=== PATIENT | male | born 1930 | race Caucasian/White ===

== ENCOUNTER 2021-04-19 16:52 | Inpatient (IN) | payer MEDICARE ==
[2021-04-20] MEDS ORDERED: Dextrose 50% Abboject 50 ML SYRINGE SLOW IVP PRN (11:05)
[2021-04-20] MEDS ORDERED: Ondansetron PF 4 MG/2 ML Vial IVP PRN (11:05)
[2021-04-20] MEDS ORDERED: HumaLOG 300 UNITS/3 ML VIAL SC PRN ×2 (11:05)
[2021-04-20] MEDS ORDERED: Dextrose 5% in Water 1,000 ML IV PRN (11:05)
[2021-04-20] MEDS ORDERED: Ondansetron ODT 4 MG TAB PO PRN (11:05)
[2021-04-20] MEDS ORDERED: hydrALAZINE 20 MG/ML VIAL SLOW IVP PRN (11:05)
[2021-04-20] MEDS: metFORMIN 500 MG TAB PO SCH (18:40)
[2021-04-20] MEDS: Lisinopril 5 MG TAB PO SCH (21:25)
[2021-04-20] MEDS: Atorvastatin Calcium 20 MG TAB PO SCH (21:25)
[2021-04-21 05:34] LABS: #Basophils 0.1 thou/uL (0.0-0.2); #Eosinphils 0.3 thou/uL (0.0-0.7); #Lymphocytes 1.7 thou/uL (1.20-3.40); #Neutrophils 5.8 thou/uL (1.40-6.50); %Basophils 0.7 % (0.0-1.0); %Eosinophils 3.4 % (0.0-10.0); %Lymphocytes 18.8 % (21.0-51.0); %Monocytes 11.7 % (0.0-10.0); %Neutrophils 65.3 % (42.0-75.0); Hemoglobin 15.6 g/dL (14.0-18.0); Mean Corpuscular HGB CONC 34.1 g/dL (32.0-36.0); Mean Corpuscular Hemoglobin 30.9 pg (27.0-31.0); Mean Corpuscular Volume 90.6 fL (78.0-98.0); Platelet Count 254 thou/uL (130-400); RBC Distribution Width 12.4 % (11.5-14.5); Red Blood Cell (RBC) Count 5.04 mill/uL (4.70-6.10); White Blood Cell (WBC) Count 8.8 thou/uL (4.8-10.8)
[2021-04-21 06:17] LABS: Anion Gap 14 mmol/L (10-20); BUN (Urea Nitrogen) 11 mg/dL (8.4-25.7); Calc. Creatinine Clearance 66 mL/min (70-130); Calcium 9.6 mg/dL (7.8-10.44); Carbon Dioxide 23 mmol/L (23-31); Chloride 104 mmol/L (98-107); Glucose 119 mg/dL (83-110); Sodium 137 mmol/L (136-145)
[2021-04-21] MEDS ORDERED: Lidocaine 0.5%/Epinephrine 1:200,000 50 ml Vial ONE (07:18)
[2021-04-21] MEDS ORDERED: Bacitracin Zinc Ointment 30 gm TUBE ONE (07:19)
[2021-04-21] MEDS ORDERED: Thrombin 5000 UNITS/5 ML VIAL ONE (07:19)
[2021-04-21] MEDS ORDERED: HYDROmorphone 0.5 MG/0.5 ML SYRINGE ONE (07:38)
[2021-04-21] MEDS ORDERED: Fentanyl 100 MCG/2 ML VIAL ONE ×2 (07:38→07:55)
[2021-04-21] MEDS ORDERED: Albumin 5% 0 ML ONE (07:39)
[2021-04-21] MEDS ORDERED: Phenylephrine 10 MG/ML VIAL ONE ×2 (07:53→08:11)
[2021-04-21] MEDS ORDERED: ceFAZolin 2 GM/DEX 5% 100 ML BAG ONE ×2 (07:56→07:57)
[2021-04-21] MEDS: Finasteride 5 MG TAB PO SCH (08:01)
[2021-04-21] MEDS: Famotidine 20 MG TAB PO SCH (08:01)
[2021-04-21] MEDS: metFORMIN 500 MG TAB PO SCH ×2 (08:01→18:16)
[2021-04-21] MEDS ORDERED: Glycopyrrolate 0.2 MG/ML 5 ML SYRINGE ONE (08:11)
[2021-04-21] MEDS ORDERED: Rocuronium Bromide 10 MG/ML (10ML VIAL) ONE (08:11)
[2021-04-21] MEDS ORDERED: Lidocaine 1% PF 5 ML VIAL ONE (08:11)
[2021-04-21] MEDS ORDERED: PROPOFOL 200 MG/20 ML VIAL ONE (08:11)
[2021-04-21] MEDS ORDERED: Aspirin 81 mg Enteric Coated Tablet PO SCH (09:00)
[2021-04-21] MEDS ORDERED: Promethazine HCl 25 MG/ML VIAL IVPB PRN (10:10)
[2021-04-21] MEDS ORDERED: Ondansetron HCl/PF 4 MG/2 ML Vial IVP PRN (10:10)
[2021-04-21] MEDS ORDERED: PACU-Morphine 4MG/ML VIAL SLOW IVP PRN (10:10)
[2021-04-21] MEDS ORDERED: Promethazine HCl 25 MG/ML VIAL IM PRN (10:10)
[2021-04-21] MEDS ORDERED: Sodium Chloride 0.9% 10 ML ONE (10:40)
[2021-04-21] MEDS ORDERED: Morphine 2 MG/ML VIAL SLOW IVP PRN (11:47)
[2021-04-21] MEDS ORDERED: Trospium 20 MG TAB PO SCH (13:00)
[2021-04-21] MEDS ORDERED: Budesonide 0.5 MG/2 ML NEB ONE (16:51)
[2021-04-21] MEDS: CEFAZOLIN 2 GM in Premix Bag 1 BAG IVPB SCH ×2 (17:24→21:54)
[2021-04-21] MEDS: Lisinopril 5 MG TAB PO SCH (20:46)
[2021-04-21] MEDS: Atorvastatin Calcium 20 MG TAB PO SCH (20:46)
[2021-04-21] MEDS: Sodium Chloride 0.9% 1,000 ML IV SCH (21:00)
[2021-04-21 22:38] LABS: Bilirubin Negative (Negative); Blood, Urine 3+ (Negative); Clarity Clear (Clear); Glucose, Urine (Dipstick) Normal (Negative); Ketone, Urine 20 mg/dL (Negative); Leukocyte 500 Leu/uL (Negative); Nitrite Negative (Negative); Protein, Urine (Dipstick) 30 mg/dL (Neg-Trace); Specific Gravity, Urine 1.024 (1.002-1.036); Squamous Epithelial None Seen HPF (0-3); Urobilinogen Normal mg/dL (Less than 2)
[2021-04-21 22:48] LABS: Bacteria/HPF None Seen HPF (None Seen)
[2021-04-21 22:49] LABS: Urine Culture Reflex Yes Yes
[2021-04-21] MEDS: Morphine 4 MG/ML VIAL SLOW IVP PRN (23:15)
[2021-04-22] MEDS: CEFAZOLIN 2 GM in Premix Bag 1 BAG IVPB SCH ×3 (05:37→21:43)
[2021-04-22] MEDS: Sodium Chloride 0.9% 1,000 ML IV SCH (09:45)
[2021-04-22] MEDS: Finasteride 5 MG TAB PO SCH (09:46)
[2021-04-22] MEDS: Famotidine 20 MG TAB PO SCH (09:46)
[2021-04-22] MEDS: metFORMIN 500 MG TAB PO SCH ×3 (09:48→16:59)
[2021-04-22 11:13] LABS: #Lymphocytes 1.1 thou/uL (1.20-3.40); #Monocytes 1.9 thou/uL (0.11-0.59); #Neutrophils 15.4 thou/uL (1.40-6.50); %Basophils 0.1 % (0.0-1.0); %Eosinophils 0.2 % (0.0-10.0); %Lymphocytes 6.1 % (21.0-51.0); %Monocytes 10.2 % (0.0-10.0); %Neutrophils 83.4 % (42.0-75.0); Hemoglobin 15.2 g/dL (14.0-18.0); Mean Corpuscular HGB CONC 35.1 g/dL (32.0-36.0); Mean Corpuscular Hemoglobin 32.1 pg (27.0-31.0); Mean Corpuscular Volume 91.4 fL (78.0-98.0); Mean Platelet Volume 6.6 fL (7.4-10.4); Platelet Count 253 thou/uL (130-400); RBC Distribution Width 12.5 % (11.5-14.5); Red Blood Cell (RBC) Count 4.74 mill/uL (4.70-6.10); White Blood Cell (WBC) Count 18.4 thou/uL (4.8-10.8)
[2021-04-22 11:32] LABS: Anion Gap 13 mmol/L (10-20); BUN (Urea Nitrogen) 11 mg/dL (8.4-25.7); Calc. Creatinine Clearance 53 mL/min (70-130); Calcium 9.2 mg/dL (7.8-10.44); Carbon Dioxide 25 mmol/L (23-31); Chloride 101 mmol/L (98-107); Glucose 180 mg/dL (83-110); Sodium 135 mmol/L (136-145)
[2021-04-22] MEDS: Acetaminophen 500 MG TAB PO PRN (17:30)
[2021-04-22] MEDS: Lisinopril 5 MG TAB PO SCH (21:41)
[2021-04-22] MEDS: Atorvastatin Calcium 20 MG TAB PO SCH (21:42)
[2021-04-22] MEDS: Morphine 4 MG/ML VIAL SLOW IVP PRN (22:14)
[2021-04-22] MEDS: Acetaminophen/Codeine 30-300mg Tablet PO PRN (22:18)
[2021-04-23 05:22] LABS: Hemoglobin 14.3 g/dL (14.0-18.0); Mean Corpuscular Hemoglobin 29.2 pg (27.0-31.0); Mean Corpuscular Volume 91.1 fL (78.0-98.0); Mean Platelet Volume 6.9 fL (7.4-10.4); Platelet Count 249 thou/uL (130-400); RBC Distribution Width 12.5 % (11.5-14.5); White Blood Cell (WBC) Count 14.7 thou/uL (4.8-10.8)
[2021-04-23] MEDS: Morphine 4 MG/ML VIAL SLOW IVP PRN ×2 (05:54→20:23)
[2021-04-23] MEDS: CEFAZOLIN 2 GM in Premix Bag 1 BAG IVPB SCH ×3 (05:54→19:59)
[2021-04-23] MEDS: Acetaminophen/Codeine 30-300mg Tablet PO PRN ×2 (05:55→19:59)
[2021-04-23] MEDS: Famotidine 20 MG TAB PO SCH (09:07)
[2021-04-23] MEDS: Amlodipine 5 MG TAB PO SCH (09:07)
[2021-04-23] MEDS: Finasteride 5 MG TAB PO SCH (09:09)
[2021-04-23] MEDS: metFORMIN 500 MG TAB PO SCH ×2 (09:11→17:06)
[2021-04-23] MEDS: Atorvastatin Calcium 20 MG TAB PO SCH (19:59)
[2021-04-23] MEDS: Lisinopril 5 MG TAB PO SCH (19:59)
[2021-04-23] MEDS: Acetaminophen 500 MG TAB PO PRN (20:22)
[2021-04-24] MEDS: CEFAZOLIN 2 GM in Premix Bag 1 BAG IVPB SCH ×3 (05:39→19:45)
[2021-04-24] MEDS: Finasteride 5 MG TAB PO SCH (08:45)
[2021-04-24] MEDS: Amlodipine 5 MG TAB PO SCH (08:45)
[2021-04-24] MEDS: Famotidine 20 MG TAB PO SCH (08:45)
[2021-04-24] MEDS: metFORMIN 500 MG TAB PO SCH ×2 (08:45→16:31)
[2021-04-24] MEDS: diphenhydrAMINE 25 MG CAP PO PRN ×2 (14:56→19:45)
[2021-04-24] MEDS ORDERED: CEFAZOLIN 2 GM in Premix Bag 1 BAG IVPB SCH (17:00)
[2021-04-24] MEDS: Morphine 4 MG/ML VIAL SLOW IVP PRN (17:02)
[2021-04-24] MEDS: Atorvastatin Calcium 20 MG TAB PO SCH (19:45)
[2021-04-24] MEDS: Lisinopril 5 MG TAB PO SCH (19:45)
[2021-04-25] MEDS: CEFAZOLIN 2 GM in Premix Bag 1 BAG IVPB SCH (06:06)
[2021-04-25] MEDS: metFORMIN 500 MG TAB PO SCH ×2 (08:24→16:41)
[2021-04-25] MEDS: Finasteride 5 MG TAB PO SCH (08:24)
[2021-04-25] MEDS: Amlodipine 5 MG TAB PO SCH (08:24)
[2021-04-25] MEDS: Famotidine 20 MG TAB PO SCH (08:24)
[2021-04-25 09:25] LABS: #Eosinphils 0.2 thou/uL (0.0-0.7); #Monocytes 1.2 thou/uL (0.11-0.59); #Neutrophils 6.7 thou/uL (1.40-6.50); %Basophils 0.3 % (0.0-1.0); %Lymphocytes 10.5 % (21.0-51.0); %Monocytes 13.3 % (0.0-10.0); %Neutrophils 73.9 % (42.0-75.0); Hemoglobin 14.5 g/dL (14.0-18.0); Mean Corpuscular HGB CONC 33.6 g/dL (32.0-36.0); Mean Corpuscular Hemoglobin 30.6 pg (27.0-31.0); Mean Corpuscular Volume 91.2 fL (78.0-98.0); Mean Platelet Volume 6.6 fL (7.4-10.4); Platelet Count 281 thou/uL (130-400); RBC Distribution Width 12.3 % (11.5-14.5); Red Blood Cell (RBC) Count 4.73 mill/uL (4.70-6.10); White Blood Cell (WBC) Count 9.1 thou/uL (4.8-10.8)
[2021-04-25] MEDS: Lisinopril 5 MG TAB PO SCH (21:40)
[2021-04-25] MEDS: Acetaminophen 500 MG TAB PO PRN (21:40)
[2021-04-25] MEDS: Atorvastatin Calcium 20 MG TAB PO SCH (21:40)
[2021-04-26 05:30] VITALS: BMI 23.8
[2021-04-26 07:39] LABS: Hemoglobin 14.1 g/dL (14.0-18.0); Mean Corpuscular HGB CONC 32.3 g/dL (32.0-36.0); Mean Corpuscular Hemoglobin 29.4 pg (27.0-31.0); Mean Corpuscular Volume 90.9 fL (78.0-98.0); Mean Platelet Volume 6.4 fL (7.4-10.4); Platelet Count 292 thou/uL (130-400); RBC Distribution Width 12.3 % (11.5-14.5); White Blood Cell (WBC) Count 11.7 thou/uL (4.8-10.8)
[2021-04-26 07:47] LABS: Anion Gap 14 mmol/L (10-20); BUN (Urea Nitrogen) 29 mg/dL (8.4-25.7); Calc. Creatinine Clearance 61 mL/min (70-130); Calcium 9.5 mg/dL (7.8-10.44); Carbon Dioxide 26 mmol/L (23-31); Chloride 103 mmol/L (98-107); Glucose 121 mg/dL (83-110); Sodium 139 mmol/L (136-145)
[2021-04-26 08:43] LABS: Band 12 % (5-11); Eosinophils 1 % (0-10); Lymphocytes 15 % (21-51); MDiff Complete? YES; Monocytes 12 % (0-10); Neutrophil 58 % (42-75); RBC Morphology Normal; Reactive Lymphocytes 2 % (0-10)
[2021-04-26] MEDS: Finasteride 5 MG TAB PO SCH (09:21)
[2021-04-26] MEDS: Famotidine 20 MG TAB PO SCH (09:21)
[2021-04-26] MEDS: Amlodipine 5 MG TAB PO SCH (09:21)
[2021-04-26] MEDS: metFORMIN 500 MG TAB PO SCH (09:21)
[2021-04-26 11:33] VITALS: BP 126/78; TEMP 98
== END 2021-04-26 14:10 | DRG 25 ==
LOC: NEURO 04-20 08:43 → CCU 04-21 13:57 → SURG A 04-22 14:21
PROVIDERS: ADMIT Family Medicine; ATTEND Internal Medicine
PROC: 00C40ZZ Extirpation of Matter from Intracranial Subdural Space, Open Approach (ICD-10-PCS; principal; 2021-04-21)
DX: I62.01 Nontraumatic acute subdural hemorrhage (principal); G93.41 Metabolic encephalopathy; G93.5 Compression of brain; E11.9 Type 2 diabetes mellitus without complications; I10 Essential (primary) hypertension; E78.5 Hyperlipidemia, unspecified; I62.03 Nontraumatic chronic subdural hemorrhage; K21.9 Gastro-esophageal reflux disease without esophagitis; D72.829 Elevated white blood cell count, unspecified; N40.0 Benign prostatic hyperplasia without lower urinary tract symptoms; Z79.82 Long term (current) use of aspirin; Z79.84 Long term (current) use of oral hypoglycemic drugs; Z79.899 Other long term (current) drug therapy
CPT/HCPCS: 36415; 36416; 70450; 71045; 80048; 80053; 81001; 82140; 82607; 82746; 84443; 85025; 85027; 87086; J0690; J1170; J2001; J2270; J2370; J2405; J2704; J3010; J7050; P9045

== ENCOUNTER 2021-06-15 12:11 | Outpatient (CLI) | payer MEDICARE | END 2021-06-15 12:12 | disposition home or self-care (01) | LOC: BICCT 12:11 | PROVIDERS: ATTEND Physician Assistant | DX: S06.5X9A Traumatic subdural hemorrhage with loss of consciousness of unspecified duration, initial encounter (principal) | CPT/HCPCS: 70450 ==

== ENCOUNTER 2022-02-22 21:43 | Inpatient (IN) | payer MEDICARE ==
[~2022-02-22 21:43] MED LIST: Iopamidol 370 76% 100 ML VIAL ONE
[2022-02-22 22:18] LABS: #Eosinphils 0.1 thou/uL (0.0-0.7); #Lymphocytes 0.5 thou/uL (1.20-3.40); #Monocytes 1.4 thou/uL (0.11-0.59); #Neutrophils 10.9 thou/uL (1.40-6.50); %Basophils 0.1 % (0.0-1.0); %Eosinophils 0.4 % (0.0-10.0); %Lymphocytes 3.6 % (21.0-51.0); %Monocytes 11.1 % (0.0-10.0); %Neutrophils 84.8 % (42.0-75.0); Mean Corpuscular HGB CONC 33.6 g/dL (32.0-36.0); Mean Corpuscular Hemoglobin 31.3 pg (27.0-31.0); Mean Corpuscular Volume 93.1 fL (78.0-98.0); Mean Platelet Volume 7.6 fL (7.4-10.4); Platelet Count 174 thou/uL (130-400); RBC Distribution Width 12.3 % (11.5-14.5); Red Blood Cell (RBC) Count 4.79 mill/uL (4.70-6.10); White Blood Cell (WBC) Count 12.8 thou/uL (4.8-10.8)
[2022-02-22 22:41] LABS: ALT (SGPT) 571 U/L (8-55); AST (SGOT) 449 U/L (5-34); Albumin 3.5 g/dL (3.4-4.8); Alkaline Phosphatase 424 U/L (40-110); Anion Gap 16 mmol/L (10-20); BUN (Urea Nitrogen) 19 mg/dL (8.4-25.7); Bilirubin, Total 4.2 mg/dL (0.2-1.2); Calc. Creatinine Clearance 0 mL/min (70-130); Calcium 8.5 mg/dL (7.8-10.44); Carbon Dioxide 19 mmol/L (23-31); Chloride 105 mmol/L (98-107); Estimated GFR 55; Globulin 2.6 g/dL (2.4-3.5); Glucose 214 mg/dL (83-110); Potassium 4.2 mmol/L (3.5-5.1); Protein, Total 6.1 g/dL (5.8-8.1); Sodium 136 mmol/L (136-145)
[2022-02-22] MEDS ORDERED: Cefepime 2 GM VIAL ONE (23:10)
[2022-02-22] MEDS ORDERED: Vancomycin 1 GM/200 ML BAG ONE (23:10)
[2022-02-22 23:40] LABS: Bilirubin 1+ (Negative); Blood, Urine Negative (Negative); Clarity Clear (Clear); Glucose, Urine (Dipstick) Normal (Negative); Ketone, Urine Trace mg/dL (Negative); Leukocyte Negative Leu/uL (Negative); Nitrite Negative (Negative); Protein, Urine (Dipstick) 20 mg/dL (Neg-Trace); Specific Gravity, Urine 1.027 (1.002-1.036); Urobilinogen 3 mg/dL (Less than 2); pH, Urine 6.5 (5.0-9.0)
[2022-02-23 01:01] LABS: Lactic Acid 2.4 mmol/L (0.5-2.2)
[2022-02-23 01:43] LABS: SARS-CoV-2 NAA Rapid Test Not Detected (NotDetected)
[2022-02-23] MEDS ORDERED: Piperacillin/Tazobactam 3.375 GM VIAL ONE (01:58)
[2022-02-23] MEDS ORDERED: metroNIDAZOLE 500 MG/100 ML BAG ONE (02:02)
[2022-02-23] MEDS ORDERED: Ondansetron PF 4 MG/2 ML Vial IVP PRN (02:36)
[2022-02-23] MEDS ORDERED: Dextrose 5% in Water 1,000 ML IV PRN (02:39)
[2022-02-23] MEDS ORDERED: Dextrose 50% Abboject 50 ML SYRINGE SLOW IVP PRN (02:39)
[2022-02-23] MEDS ORDERED: HumaLOG 300 UNITS/3 ML VIAL SC PRN (02:39)
[2022-02-23 06:30] LABS: #Eosinphils 0.1 thou/uL (0.0-0.7); #Lymphocytes 0.4 thou/uL (1.20-3.40); #Monocytes 1.3 thou/uL (0.11-0.59); #Neutrophils 9.2 thou/uL (1.40-6.50); %Basophils 0.3 % (0.0-1.0); %Eosinophils 0.5 % (0.0-10.0); %Lymphocytes 3.6 % (21.0-51.0); %Monocytes 11.8 % (0.0-10.0); %Neutrophils 83.8 % (42.0-75.0); Hemoglobin 14.4 g/dL (14.0-18.0); Mean Corpuscular HGB CONC 33.4 g/dL (32.0-36.0); Mean Corpuscular Hemoglobin 31.1 pg (27.0-31.0); Mean Corpuscular Volume 93.3 fL (78.0-98.0); Mean Platelet Volume 7.9 fL (7.4-10.4); Platelet Count 151 thou/uL (130-400); RBC Distribution Width 12.3 % (11.5-14.5); Red Blood Cell (RBC) Count 4.62 mill/uL (4.70-6.10)
[2022-02-23 06:48] LABS: Lactic Acid 2.5 mmol/L (0.5-2.2)
[2022-02-23 06:51] LABS: ALT (SGPT) 450 U/L (8-55); AST (SGOT) 251 U/L (5-34); Albumin 3.3 g/dL (3.4-4.8); Alkaline Phosphatase 358 U/L (40-110); Anion Gap 15 mmol/L (10-20); BUN (Urea Nitrogen) 16 mg/dL (8.4-25.7); Calc. Creatinine Clearance 0 mL/min (70-130); Calcium 8.6 mg/dL (7.8-10.44); Carbon Dioxide 19 mmol/L (23-31); Chloride 105 mmol/L (98-107); Estimated GFR 75; Globulin 2.4 g/dL (2.4-3.5); Glucose 151 mg/dL (83-110); Protein, Total 5.7 g/dL (5.8-8.1); Sodium 135 mmol/L (136-145)
[2022-02-23] MEDS: Sodium Chloride 0.9% 1,000 ML IV SCH ×2 (07:15→16:41)
[2022-02-23] MEDS ORDERED: Piperacillin/Tazobactam 3.375 GM in Sodium Chloride 0.9% 100 ML IVPB SCH (08:00)
[2022-02-23] MEDS ORDERED: Bupivacaine PF 0.5% 30 ML VIAL ONE (13:01)
[2022-02-23] MEDS ORDERED: Bupivacaine 0.25% HCL 30 ML VIAL ONE (13:01)
[2022-02-23] MEDS ORDERED: EPINEPHrine 1 MG/ML AMP ONE (13:01)
[2022-02-23] MEDS ORDERED: Iopamidol 15 ML ONE (13:06)
[2022-02-23] MEDS ORDERED: Indomethacin 50 MG SUPP ONE (13:06)
[2022-02-23] MEDS ORDERED: SUGAMMADEX SODIUM 200 MG/2 ML VIAL ONE (13:09)
[2022-02-23] MEDS ORDERED: Fentanyl 100 MCG/2 ML VIAL ONE ×2 (13:09→16:28)
[2022-02-23] MEDS ORDERED: Rocuronium Bromide 10 MG/ML (10ML VIAL) ONE (13:16)
[2022-02-23] MEDS ORDERED: PROPOFOL 200 MG/20 ML VIAL ONE (13:16)
[2022-02-23] MEDS ORDERED: Ondansetron PF 4 MG/2 ML Vial ONE (13:16)
[2022-02-23] MEDS ORDERED: Ondansetron HCl/PF 4 MG/2 ML Vial IVP PRN (15:47)
[2022-02-23] MEDS ORDERED: Promethazine HCl 25 MG/ML VIAL IVPB PRN (15:47)
[2022-02-23] MEDS ORDERED: Promethazine HCl 25 MG/ML VIAL IM PRN (15:47)
[2022-02-23] MEDS ORDERED: Ibuprofen 600 MG TAB PO PRN (15:52)
[2022-02-23] MEDS ORDERED: Ondansetron ODT 8 MG TAB SL PRN (15:52)
[2022-02-23] MEDS ORDERED: Ondansetron ODT 4 MG TAB PO PRN (15:52)
[2022-02-23] MEDS ORDERED: Acetaminophen 500 MG TAB PO SCH (16:00)
[2022-02-23] MEDS ORDERED: Labetalol HCl 100 MG/20 ML VIAL ONE (16:25)
[2022-02-23] MEDS: HumaLOG 300 UNITS/3 ML VIAL SC PRN (18:22)
[2022-02-23] MEDS: Morphine 4 MG/ML VIAL SLOW IVP PRN (18:25)
[2022-02-23] MEDS: Enoxaparin Sodium 40 MG/0.4 ML SYRINGE SC SCH (20:35)
[2022-02-23] MEDS: Lisinopril 5 MG TAB PO SCH (20:35)
[2022-02-23] MEDS: traMADol HCl 50 MG TAB PO PRN (20:35)
[2022-02-23] MEDS: Latanoprost 0.005% Ophth Soln 2.5 ml Bottle EA EYE SCH (21:11)
[2022-02-23] MEDS: Piperacillin/Tazobactam 3.375 GM in Sodium Chloride 0.9% 100 ML IVPB SCH (21:14)
[2022-02-24] MEDS: Piperacillin/Tazobactam 3.375 GM in Sodium Chloride 0.9% 100 ML IVPB SCH ×3 (06:09→20:15)
[2022-02-24] MEDS: Morphine 4 MG/ML VIAL SLOW IVP PRN (06:10)
[2022-02-24] MEDS: HumaLOG 300 UNITS/3 ML VIAL SC PRN ×3 (06:12→17:49)
[2022-02-24 06:35] LABS: #Lymphocytes 0.4 thou/uL (1.20-3.40); #Monocytes 1.3 thou/uL (0.11-0.59); #Neutrophils 11.3 thou/uL (1.40-6.50); %Basophils 0.1 % (0.0-1.0); %Eosinophils 0.3 % (0.0-10.0); %Lymphocytes 3.3 % (21.0-51.0); %Monocytes 9.7 % (0.0-10.0); %Neutrophils 86.6 % (42.0-75.0); Hemoglobin 15.6 g/dL (14.0-18.0); Mean Corpuscular HGB CONC 32.9 g/dL (32.0-36.0); Mean Corpuscular Hemoglobin 30.7 pg (27.0-31.0); Mean Corpuscular Volume 93.5 fL (78.0-98.0); Mean Platelet Volume 7.9 fL (7.4-10.4); Platelet Count 144 thou/uL (130-400); RBC Distribution Width 12.3 % (11.5-14.5); Red Blood Cell (RBC) Count 5.07 mill/uL (4.70-6.10); White Blood Cell (WBC) Count 13.1 thou/uL (4.8-10.8)
[2022-02-24 06:57] LABS: ALT (SGPT) 347 U/L (8-55); AST (SGOT) 145 U/L (5-34); Albumin 3.3 g/dL (3.4-4.8); Alkaline Phosphatase 300 U/L (40-110); Anion Gap 14 mmol/L (10-20); BUN (Urea Nitrogen) 17 mg/dL (8.4-25.7); Bilirubin, Total 3.8 mg/dL (0.2-1.2); Calc. Creatinine Clearance 0 mL/min (70-130); Calcium 8.5 mg/dL (7.8-10.44); Carbon Dioxide 19 mmol/L (23-31); Chloride 105 mmol/L (98-107); Estimated GFR 82; Globulin 2.7 g/dL (2.4-3.5); Glucose 285 mg/dL (83-110); Potassium 4.1 mmol/L (3.5-5.1); Sodium 134 mmol/L (136-145)
[2022-02-24] MEDS: traMADol HCl 50 MG TAB PO PRN (10:15)
[2022-02-24] MEDS: Acetaminophen 500 MG TAB PO PRN (10:15)
[2022-02-24] MEDS: Finasteride 5 MG TAB PO SCH (10:16)
[2022-02-24] MEDS: Polyethylene Glycol 3350 17 GM Packet PO SCH (10:16)
[2022-02-24] MEDS ORDERED: Ibuprofen 200 MG TAB PO PRN (11:15)
[2022-02-24] MEDS ORDERED: Insulin Glargine 30 UNITS/0.3 ML VIAL SC SCH (12:00)
[2022-02-24] MEDS ORDERED: Milk Of Magnesia 30 ML UDCUP PO SCH (13:00)
[2022-02-24] MEDS: Vancomycin HCl 750 MG in Sodium Chloride 0.9% 250 ML 250 ML IVPB SCH (13:36)
[2022-02-24] MEDS: metFORMIN 500 MG TAB PO SCH (17:49)
[2022-02-24] MEDS: Sodium Chloride 0.9% 1,000 ML IV SCH (20:13)
[2022-02-24] MEDS: Enoxaparin Sodium 40 MG/0.4 ML SYRINGE SC SCH (20:14)
[2022-02-24] MEDS: Latanoprost 0.005% Ophth Soln 2.5 ml Bottle EA EYE SCH (20:14)
[2022-02-24] MEDS: Lisinopril 5 MG TAB PO SCH (20:16)
[2022-02-24] MEDS ORDERED: Vancomycin 1 GM in Premix Bag 1 BAG IVPB SCH (21:00)
[2022-02-25] MEDS: traMADol HCl 50 MG TAB PO PRN ×2 (00:07→08:42)
[2022-02-25] MEDS: Vancomycin HCl 750 MG in Sodium Chloride 0.9% 250 ML 250 ML IVPB SCH ×2 (00:58→14:05)
[2022-02-25] MEDS: Acetaminophen 500 MG TAB PO PRN ×2 (02:02→14:47)
[2022-02-25] MEDS: Morphine 4 MG/ML VIAL SLOW IVP PRN (03:28)
[2022-02-25] MEDS: Piperacillin/Tazobactam 3.375 GM in Sodium Chloride 0.9% 100 ML IVPB SCH ×3 (06:27→20:39)
[2022-02-25] MEDS: Sodium Chloride 0.9% 1,000 ML IV SCH ×2 (06:27→14:49)
[2022-02-25 06:30] LABS: Band 6 % (5-11); Eosinophils 1 % (0-10); Hemoglobin 14.8 g/dL (14.0-18.0); Lymphocytes 4 % (21-51); MDiff Complete? YES; Mean Corpuscular HGB CONC 32.7 g/dL (32.0-36.0); Mean Corpuscular Hemoglobin 30.5 pg (27.0-31.0); Mean Corpuscular Volume 93.1 fL (78.0-98.0); Monocytes 5 % (0-10); Neutrophil 84 % (42-75); Platelet Count 132 thou/uL (130-400); RBC Distribution Width 12.4 % (11.5-14.5); Red Blood Cell (RBC) Count 4.85 mill/uL (4.70-6.10)
[2022-02-25 06:34] LABS: ALT (SGPT) 240 U/L (8-55); AST (SGOT) 74 U/L (5-34); Alkaline Phosphatase 236 U/L (40-110); Anion Gap 11 mmol/L (10-20); BUN (Urea Nitrogen) 21 mg/dL (8.4-25.7); Bilirubin, Total 3.3 mg/dL (0.2-1.2); Calc. Creatinine Clearance 0 mL/min (70-130); Calcium 8.2 mg/dL (7.8-10.44); Carbon Dioxide 19 mmol/L (23-31); Chloride 102 mmol/L (98-107); Estimated GFR 85; Globulin 2.7 g/dL (2.4-3.5); Glucose 163 mg/dL (83-110); Potassium 3.9 mmol/L (3.5-5.1); Protein, Total 5.7 g/dL (5.8-8.1); Sodium 128 mmol/L (136-145)
[2022-02-25] MEDS: HumaLOG 300 UNITS/3 ML VIAL SC PRN (06:34)
[2022-02-25] MEDS: metFORMIN 500 MG TAB PO SCH (08:41)
[2022-02-25] MEDS: Finasteride 5 MG TAB PO SCH (08:42)
[2022-02-25] MEDS: Polyethylene Glycol 3350 17 GM Packet PO SCH (08:42)
[2022-02-25 11:50] VITALS: BMI 26.3
[2022-02-25] MEDS ORDERED: hydrALAZINE 20 MG/ML VIAL SLOW IVP PRN (13:22)
[2022-02-25] MEDS ORDERED: HumaLOG 300 UNITS/3 ML VIAL SC PRN (13:28)
[2022-02-25] MEDS ORDERED: Electrolyte Replacement Protocol FS PRN (13:30)
[2022-02-25] MEDS ORDERED: Simethicone Chewable 80 MG TAB PO SCH (14:00)
[2022-02-25 14:39] LABS: Anion Gap 13 mmol/L (10-20); BUN (Urea Nitrogen) 17 mg/dL (8.4-25.7); Calc. Creatinine Clearance 70 mL/min (70-130); Calcium 8.4 mg/dL (7.8-10.44); Carbon Dioxide 18 mmol/L (23-31); Chloride 103 mmol/L (98-107); Estimated GFR 85; Glucose 121 mg/dL (83-110); Potassium 4.4 mmol/L (3.5-5.1); Sodium 130 mmol/L (136-145)
[2022-02-25 14:51] LABS: Phosphorus 1.7 mg/dL (2.3-4.7)
[2022-02-25] MEDS ORDERED: Simethicone Chewable 80 MG TAB PO PRN (19:00)
[2022-02-25] MEDS: Latanoprost 0.005% Ophth Soln 2.5 ml Bottle EA EYE SCH (20:38)
[2022-02-25] MEDS: Enoxaparin Sodium 40 MG/0.4 ML SYRINGE SC SCH (20:38)
[2022-02-25] MEDS ORDERED: Magnesium 2 GM/50 ML(in water) 2 GM in Premix Bag 1 BAG IVPB SCH (21:15)
[2022-02-25] MEDS ORDERED: Potassium Phosphate 15 MMOL in Sodium Chloride 0.9% 100 ML IVPB SCH (22:00)
[2022-02-26] MEDS: Sodium Chloride 0.9% 1,000 ML IV SCH (03:54)
[2022-02-26] MEDS: Piperacillin/Tazobactam 3.375 GM in Sodium Chloride 0.9% 100 ML IVPB SCH ×2 (05:21→12:57)
[2022-02-26 05:43] LABS: #Lymphocytes 0.8 thou/uL (1.20-3.40); #Monocytes 0.9 thou/uL (0.11-0.59); #Neutrophils 5.1 thou/uL (1.40-6.50); %Basophils 0.3 % (0.0-1.0); %Eosinophils 0.5 % (0.0-10.0); %Lymphocytes 11.1 % (21.0-51.0); %Monocytes 13.6 % (0.0-10.0); %Neutrophils 74.5 % (42.0-75.0); Hemoglobin 13.4 g/dL (14.0-18.0); Mean Corpuscular HGB CONC 33.7 g/dL (32.0-36.0); Mean Corpuscular Hemoglobin 31.6 pg (27.0-31.0); Mean Corpuscular Volume 93.9 fl (78.0-98.0); Mean Platelet Volume 7.5 fL (7.4-10.4); Platelet Count 165 thou/uL (130-400); RBC Distribution Width 12.4 % (11.5-14.5); Red Blood Cell (RBC) Count 4.24 mill/uL (4.70-6.10); White Blood Cell (WBC) Count 6.8 thou/uL (4.8-10.8)
[2022-02-26 06:26] LABS: ALT (SGPT) 155 U/L (8-55); AST (SGOT) 45 U/L (5-34); Albumin 2.8 g/dL (3.4-4.8); Alkaline Phosphatase 197 U/L (40-110); Anion Gap 10 mmol/L (10-20); BUN (Urea Nitrogen) 13 mg/dL (8.4-25.7); Calc. Creatinine Clearance 66 mL/min (70-130); Carbon Dioxide 22 mmol/L (23-31); Chloride 107 mmol/L (98-107); Estimated GFR 83; Globulin 2.5 g/dL (2.4-3.5); Glucose 131 mg/dL (83-110); Phosphorus 2.6 mg/dL (2.3-4.7); Potassium 4.3 mmol/L (3.5-5.1); Protein, Total 5.3 g/dL (5.8-8.1); Sodium 135 mmol/L (136-145)
[2022-02-26] MEDS: Finasteride 5 MG TAB PO SCH (09:02)
[2022-02-26] MEDS: Saccharomyces boulardii 250 MG CAP PO SCH (09:03)
[2022-02-26] MEDS: Polyethylene Glycol 3350 17 GM Packet PO SCH (09:03)
[2022-02-26] MEDS: Enoxaparin Sodium 40 MG/0.4 ML SYRINGE SC SCH (20:39)
[2022-02-26] MEDS: Latanoprost 0.005% Ophth Soln 2.5 ml Bottle EA EYE SCH (20:39)
[2022-02-26] MEDS: metroNIDAZOLE 500 MG TAB PO SCH (20:39)
[2022-02-26] MEDS: K-Phos Neutral 250 MG TAB PO SCH (20:39)
[2022-02-27 05:57] LABS: #Eosinphils 0.1 thou/uL (0.0-0.7); #Monocytes 1.2 thou/uL (0.11-0.59); #Neutrophils 5.7 thou/uL (1.40-6.50); %Basophils 0.2 % (0.0-1.0); %Eosinophils 1.3 % (0.0-10.0); %Lymphocytes 12.1 % (21.0-51.0); %Monocytes 14.5 % (0.0-10.0); Hemoglobin 13.1 g/dL (14.0-18.0); Mean Corpuscular HGB CONC 33.4 g/dL (32.0-36.0); Mean Corpuscular Hemoglobin 31.3 pg (27.0-31.0); Mean Corpuscular Volume 93.6 fl (78.0-98.0); Mean Platelet Volume 7.5 fL (7.4-10.4); Platelet Count 177 thou/uL (130-400); RBC Distribution Width 12.6 % (11.5-14.5); Red Blood Cell (RBC) Count 4.21 mill/uL (4.70-6.10); White Blood Cell (WBC) Count 7.9 thou/uL (4.8-10.8)
[2022-02-27 06:57] LABS: ALT (SGPT) 126 U/L (8-55); AST (SGOT) 46 U/L (5-34); Albumin 2.8 g/dL (3.4-4.8); Alkaline Phosphatase 215 U/L (40-110); Anion Gap 12 mmol/L (10-20); BUN (Urea Nitrogen) 13 mg/dL (8.4-25.7); Bilirubin, Total 1.6 mg/dL (0.2-1.2); Calc. Creatinine Clearance 70 mL/min (70-130); Calcium 8.5 mg/dL (7.8-10.44); Carbon Dioxide 25 mmol/L (23-31); Chloride 105 mmol/L (98-107); Estimated GFR 85; Globulin 2.7 g/dL (2.4-3.5); Glucose 147 mg/dL (83-110); Phosphorus 2.4 mg/dL (2.3-4.7); Potassium 3.7 mmol/L (3.5-5.1); Protein, Total 5.5 g/dL (5.8-8.1); Sodium 138 mmol/L (136-145)
[2022-02-27] MEDS: Polyethylene Glycol 3350 17 GM Packet PO SCH (09:06)
[2022-02-27] MEDS: metroNIDAZOLE 500 MG TAB PO SCH (09:07)
[2022-02-27] MEDS: Saccharomyces boulardii 250 MG CAP PO SCH (09:07)
[2022-02-27] MEDS: K-Phos Neutral 250 MG TAB PO SCH ×2 (09:07→12:05)
[2022-02-27] MEDS: Finasteride 5 MG TAB PO SCH (09:07)
[2022-02-27 13:02] VITALS: BP 146/77; TEMP 97.8
== END 2022-02-27 16:22 | disposition home or self-care (01) | DRG 853 ==
LOC: ERS 21:43 → SURG B 02-23 02:36
PROVIDERS: ADMIT Internal Medicine; ATTEND Internal Medicine
PROC: 0FT44ZZ Resection of Gallbladder, Percutaneous Endoscopic Approach (ICD-10-PCS; principal; 2022-02-23)
PROC: 0DJ08ZZ Inspection of Upper Intestinal Tract, Via Natural or Artificial Opening Endoscopic (ICD-10-PCS; 2022-02-23)
PROC: 0FJB8ZZ Inspection of Hepatobiliary Duct, Via Natural or Artificial Opening Endoscopic (ICD-10-PCS; 2022-02-23)
PROC: BF101ZZ Fluoroscopy of Bile Ducts using Low Osmolar Contrast (ICD-10-PCS; 2022-02-23)
PROC: BF151ZZ Fluoroscopy of Liver using Low Osmolar Contrast (ICD-10-PCS; 2022-02-23)
DX: A41.59 Other Gram-negative sepsis (principal); I62.03 Nontraumatic chronic subdural hemorrhage; E87.1 Hypo-osmolality and hyponatremia; K56.7 Ileus, unspecified; K83.09 Other cholangitis; K91.89 Other postprocedural complications and disorders of digestive system; K81.0 Acute cholecystitis; I67.89 Other cerebrovascular disease; R65.20 Severe sepsis without septic shock; I10 Essential (primary) hypertension; N40.0 Benign prostatic hyperplasia without lower urinary tract symptoms; E83.39 Other disorders of phosphorus metabolism; K57.90 Diverticulosis of intestine, part unspecified, without perforation or abscess without bleeding; E78.5 Hyperlipidemia, unspecified; E11.9 Type 2 diabetes mellitus without complications; Z20.822 Contact with and (suspected) exposure to COVID-19; Z79.84 Long term (current) use of oral hypoglycemic drugs; Z79.899 Other long term (current) drug therapy; Z98.890 Other specified postprocedural states; Z87.891 Personal history of nicotine dependence
CPT/HCPCS: 36415; 36416; 70450; 71045; 74019; 74177; 74330; 76705; 80053; 81003; 83605; 83690; 83735; 84100; 85025; 87040; 87077; 87086; 87149; 87186; 88304; 93005; 96365; 96367; 96375; C1713; J0171; J0692; J1650; J1815; J1956; J2270; J2405; J2543; J2704; J3010; J3370; J3475; J3490; J7050; Q0162; Q9967; S0020